=== PATIENT | male | born 1965 | race Native Hawaiian/Other Pacific Islander ===

== ENCOUNTER 2018-06-29 15:28 | Inpatient (IN) ==
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
[2018-06-29 17:00] LABS: Baso % (Auto) 0.5 % (0.0-2.0); Eos # (Auto) 0.2 th/mm3 (0.0-0.4); Eos % (Auto) 2.3 % (0.0-4.0); Hemoglobin 14.5 gm/dL (13.0-17.0); Lymph # (Auto) 1.9 th/mm3 (1.0-4.8); Lymph % (Auto) 19.3 % (9.0-44.0); Mean Corpuscular Hemoglobin 27.9 pg (27.0-34.0); Mean Corpuscular Volume 84.3 fL (80.0-100.0); Mean Platelet Volume 7.5 fL (7.0-11.0); Mono # (Auto) 0.6 th/mm3 (0.0-0.9); Mono % (Auto) 5.6 % (0.0-8.0); Neut # (Auto) 7.2 th/mm3 (1.8-7.7); Neut % (Auto) 72.3 % (16.0-70.0); Platelet Count 351 th/mm3 (150-450); Red Blood Count 5.22 mil/mm3 (4.50-5.90); Red Cell Distribution Width 13.1 % (11.6-17.2); White Blood Count 9.9 th/mm3 (4.0-11.0)
[2018-06-29 17:08] LABS: Chloride 101 meq/L (98-107); Potassium 4.2 meq/L (3.5-5.1); Sodium 136 meq/L (136-145)
[2018-06-29 17:12] LABS: Albumin 3.6 g/dL (3.4-5.0); Anion Gap 6 meq/L (5-15); Blood Urea Nitrogen 16 mg/dL (7-18); Carbon Dioxide 29.4 meq/L (21.0-32.0); Glucose,Random 121 mg/dL (74-106); Lipase 93 U/L (73-393); Magnesium 2.7 mg/dL (1.5-2.5)
[2018-06-29 17:15] LABS: Alanine Aminotransferase 22 U/L (12-78); Aspartate Aminotransferase 15 U/L (15-37); Glomerular Filtration Rate 78 mL/min (>89)
[2018-06-29 17:17] LABS: Total Protein 8.4 g/dL (6.4-8.2)
[2018-06-29 17:18] LABS: Alkaline Phosphatase 66 U/L (45-117)
--- NOTE | 2018-06-29 18:03 | CT ---
EXAM DATE: 06/29/2018 5:41 PM EST AGE/SEX: 53 years / Male INDICATIONS: Diffuse abdominal pain and constipation. CLINICAL DATA: This is the patient's initial encounter. Patient reports that signs and symptoms have been present for 3 days and indicates a pain score of 6/10. MEDICAL/SURGICAL HISTORY: . Umbilical hernia. Umbilical hernia repair. ORAL CONTRAST: No oral contrast ingested. RADIATION DOSE: 19.14 CTDI (mGy) COMPARISON: No prior exams available for comparison. TECHNIQUE: Multiple contiguous axial images were obtained through the abdomen and pelvis following b olus infusion of 97 ml Omnipaque 350 (iohexol) nonionic water-soluble contrast as a single exam dos e. No oral contrast ingested. Using automated exposure control and adjustment of the mA and/or kV ac cording to patient size, radiation dose was kept as low as reasonably achievable to obtain optimal di agnostic quality images. DICOM format image data is available electronically for review and comparis on. FINDINGS: Lower Lungs: There is mild increased density at the posterior lower lungs bilaterally likely related to atelectasis being worse on the right. Liver: The liver demonstrates diffuse decreased attenuation. No focal hepatic lesion is seen. The gal lbladder is unremarkable. Spleen: Homogeneous density without enlargement. Pancreas: Unremarkable without mass or calcification. Kidneys: Normal in size and shape. No evidence of hydronephrosis. Small cysts are seen at the superi or aspect of the kidneys bilaterally. Adrenal Glands: Unremarkable. Aorta: The aorta and proximal iliac vessels are grossly unremarkable without aneurysmal dilation. Bowel/Mesentery: There is dilated small bowel in mid abdomen. There is a hernia in the midline conta ining distal small bowel. The bowel within the hernia is not clearly dilated but given the small karrie l dilatation some degree of obstruction can be suspected. The patient also appears to have an area of acute angulation in the mid small bowel raising the possibility of separate adhesions. There appears to be is very prominently distended segment of small bowel in the left upper quadrant measuring 8.5 cm in diameter. There appears to be a bowel anastomosis suture at this level presumably from prior st udy small bowel anastomosis. Abdominal Wall: Again noted is the anterior abdominal wall hernia in the midline in the upper pelvic region. There does appear to be induration within the subcutaneous fat around this. A focal fluid co llection to suggest abscess is not seen. The colon is not distended. Retroperitoneum: No evidence of adenopathy in the retrocrural, para-aortic, or deep pelvic regions. Bladder: Contours are smooth. Reproductive Organs: No abnormal masses or calcifications seen. Inguinal: The inguinal region is unremarkable without evidence of adenopathy. Bony Structures: Unremarkable. CONCLUSION: 1. Dilatation of the small bowel likely from obstruction. The patient does have a hernia in the midl ine containing small bowel in the mid pelvic region and also as a potential area of adhesions with an acute angulation in the mid to distal small bowel. 2. Hepatic steatosis. 3. Small renal cysts. 4. Suspected atelectasis at the lung bases. Electronically signed by: Misael Chance MD 06/29/2018 6:01 PM EST
[2018-06-29 18:45] LABS: INR 1.1 Ratio; Prothrombin Time 10.8 sec (9.8-11.6)
[2018-06-29] MEDS ORDERED: HYDROmorphone PF Inj 0.5 MG/0.5 ML Syringe IV.PUSH PRN (18:57)
[2018-06-29] MEDS ORDERED: Potassium Chloride Inj 30 MEQ in Sod Chloride 0.9% Inj 1,000 ML IV.CONT SCH (19:00)
[2018-06-29] MEDS ORDERED: Acetaminophen 325 MG Tablet PO PRN (23:07)
[2018-06-29] MEDS: KCL 20 mEq/D5W/NaCl 0.45% Inj 1,000 ML IV.CONT SCH (23:16)
--- NOTE | 2018-06-29 23:44 | XR ---
EXAM DATE: 06/29/2018 11:32 PM EST AGE/SEX: 53 years / Male INDICATIONS: Cough. CLINICAL DATA: This is the patient's initial encounter. Patient reports that signs and symptoms have been present for 1 day and indicates a pain score of 0/10. MEDICAL/SURGICAL HISTORY: . Umbilical hernia. . Umbilical hernia repair. COMPARISON: No prior exams available for comparison. FINDINGS: There is blunting of the bilateral costophrenic angles without consolidation. This may be related to scarring or small effusions. Metallic pins overlie the neck and may be related to the patient's hair and this should be evaluated on physical exam. Osseous structures are intact. CONCLUSION: Blunting of bilateral costophrenic angles are noted. Electronically signed by: Parmjit Hernandez MD 06/29/2018 11:42 PM EST
--- NOTE | 2018-06-29 23:45 | XR ---
EXAM DATE: 06/29/2018 11:32 PM EST AGE/SEX: 53 years / Male INDICATIONS: Ileus. CLINICAL DATA: This is the patient's initial encounter. Patient reports that signs and symptoms have been present for 1 day and indicates a pain score of 0/10. MEDICAL/SURGICAL HISTORY: . Umbilical hernia. . Umbilical hernia repair. COMPARISON: CT abdomen and pelvis with contrast 06/29/2018. FINDINGS: There is moderate dilatation of air-filled small bowel loops in the central abdomen. Air is seen in nondilated large bowel and stomach. Recent CT showed a midline hernia defect containing small bowel l oops of dilated small intestine. CONCLUSION: Abnormal dilated loops of small bowel are again seen. Electronically signed by: Parmjit Hernandez MD 06/29/2018 11:44 PM EST
[2018-06-30 08:35] LABS: Baso # (Auto) 0.1 th/mm3 (0.0-0.2); Baso % (Auto) 0.9 % (0.0-2.0); Eos # (Auto) 0.5 th/mm3 (0.0-0.4); Eos % (Auto) 5.3 % (0.0-4.0); Hematocrit 40.6 % (39.0-51.0); Hemoglobin 13.9 gm/dL (13.0-17.0); Lymph # (Auto) 3.3 th/mm3 (1.0-4.8); Lymph % (Auto) 33.5 % (9.0-44.0); Mean Corpuscular HGB Conc 34.2 % (32.0-36.0); Mean Corpuscular Hemoglobin 29.2 pg (27.0-34.0); Mean Corpuscular Volume 85.3 fL (80.0-100.0); Mean Platelet Volume 7.6 fL (7.0-11.0); Mono # (Auto) 0.6 th/mm3 (0.0-0.9); Mono % (Auto) 6.4 % (0.0-8.0); Neut # (Auto) 5.2 th/mm3 (1.8-7.7); Neut % (Auto) 53.9 % (16.0-70.0); Platelet Count 317 th/mm3 (150-450); Red Blood Count 4.75 mil/mm3 (4.50-5.90); White Blood Count 9.7 th/mm3 (4.0-11.0)
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
[2018-06-30] MEDS: KCL 20 mEq/D5W/NaCl 0.45% Inj 1,000 ML IV.CONT SCH ×2 (09:00→20:25)
[2018-06-30 09:02] LABS: Calcium 7.8 mg/dL (8.5-10.1); Carbon Dioxide 25.4 meq/L (21.0-32.0); Potassium 4.1 meq/L (3.5-5.1)
[2018-06-30] MEDS ORDERED: Influenza (Quadrivalent) Vaccine 0.5 ML Syringe IM ONE (09:15)
[2018-06-30] MEDS: Senna/Docusate Sodium 8.6/50 MG Tablet PO SCH ×2 (09:26→20:26)
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
[2018-06-30] MEDS ORDERED: Diatrizoate Meglum/Diatrizoate Sod Liq 120 ML Bottle (for RAD diag) PO ONE (16:12)
--- NOTE | 2018-06-30 16:37 | ECG ---
Date Performed: 06/30/2018 Time Performed: 11:03:52 PTAGE: 53 years EKG: Sinus rhythm Since the previous tracing, no significant change noted NORMAL ECG PREVIOUS TRACING : 01/26/2016 09.54 DOCTOR: Matthew Manning Interpretating Date/Time 06/30/2018 16:35:55
--- NOTE | 2018-06-30 18:01 | FL ---
EXAM DATE: 06/30/2018 5:35 PM EST AGE/SEX: 53 years / Male INDICATIONS: Obstruction CLINICAL DATA: This is the patient's initial encounter. Patient reports that signs and symptoms have been present for 2 days and indicates a pain score of 5/10. MEDICAL/SURGICAL HISTORY: . Umbilical hernia. . Umbilical hernia repair. COMPARISON: [facility], ABDOMEN 1V KUB, 06/29/2018. [facility], CT ABDOMEN & PELVIS W CONTRAST, 06/29/2018. . FLUORO TIME: 0 IMAGE COUNT: 10 CONTRAST: [facility] FINDINGS: Photostatic Copy Maker view of the abdomen demonstrates persistent abnormally dilated proximal to mid small bowel. The re is colon gas present. Oral contrast was consumed and serial images were obtained to follow the con trast throughout the bowel. Jejunum is dilated with a normal fold pattern. There is a dilated segment of jejunum in the left upper quadrant in an area of prior surgery. Contrast progresses throughout th e examination and by 2 hours contrast has reached the colon at least to the mid descending colon. CONCLUSION: Persistent abnormally dilated jejunum. However, the oral contrast material reaches the colon by 2 viviana rs demonstrating that no high-grade obstruction is present. Electronically signed by: Misael Goodman MD 06/30/2018 5:59 PM EST
[2018-07-01] MEDS: KCL 20 mEq/D5W/NaCl 0.45% Inj 1,000 ML IV.CONT SCH (05:47)
[2018-07-01 07:25] LABS: Baso # (Auto) 0.1 th/mm3 (0.0-0.2); Baso % (Auto) 1.1 % (0.0-2.0); Eos # (Auto) 0.6 th/mm3 (0.0-0.4); Eos % (Auto) 5.6 % (0.0-4.0); Hematocrit 40.9 % (39.0-51.0); Lymph % (Auto) 29.5 % (9.0-44.0); Mean Corpuscular HGB Conc 34.3 % (32.0-36.0); Mean Corpuscular Hemoglobin 28.9 pg (27.0-34.0); Mean Corpuscular Volume 84.4 fL (80.0-100.0); Mean Platelet Volume 7.7 fL (7.0-11.0); Mono # (Auto) 0.5 th/mm3 (0.0-0.9); Mono % (Auto) 5.5 % (0.0-8.0); Neut # (Auto) 5.8 th/mm3 (1.8-7.7); Neut % (Auto) 58.3 % (16.0-70.0); Platelet Count 298 th/mm3 (150-450); Red Blood Count 4.85 mil/mm3 (4.50-5.90); Red Cell Distribution Width 13.8 % (11.6-17.2)
[2018-07-01 07:52] LABS: Carbon Dioxide 23.3 meq/L (21.0-32.0); Potassium 4.2 meq/L (3.5-5.1)
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
--- NOTE | 2018-07-01 09:58 | XR ---
EXAM DATE: 07/01/2018 9:53 AM EST AGE/SEX: 53 years / Male INDICATIONS: Distention. CLINICAL DATA: This is the patient's initial encounter. Patient reports that signs and symptoms have been present for 3 days and indicates a pain score of 0/10. MEDICAL/SURGICAL HISTORY: . Hernia . Hernia repair COMPARISON: [facility], SMALL BOWEL W GASTROGRAFIN, 06/30/2018. . FINDINGS: 2 AP supine views of the abdomen and pelvis were obtained and demonstrate residual oral contrast not ed throughout the colon. There are several loops of borderline dilated air-containing small bowel aga in noted in the left midabdomen. This is not significant change. There is no evidence of free air or mass effect on the supine study. The bony structures remain intact. CONCLUSION: 1. Several loops of borderline dilated air-containing small bowel remain in the left mid abdomen. 2. Residual contrast from the recent small bowel follow-through. Electronically signed by: Nathaniel Graham MD 07/01/2018 9:57 AM EST
[2018-07-01] MEDS: Senna/Docusate Sodium 8.6/50 MG Tablet PO SCH ×2 (10:02→20:41)
--- NOTE | 2018-07-01 11:18 | P.PNGS ---
Subjective Interval history: SBFT showed contrast in colon after 2 hrs. He had liquid bms. He is feeling better and wants some food. Physical Exam Vital signs: Vital Signs 06/30/18 12:00 06/30/18 16:00 06/30/18 20:00 Temperature 98.4 F 97.8 F 98.0 F Pulse Rate 77 77 77 Respiratory Rate 19 19 20 Blood Pressure 127/76 123/71 130/77 Pulse Oximetry 95 98 97 07/01/18 00:00 07/01/18 08:00 Temperature 98.8 F 98.1 F Pulse Rate 80 79 Respiratory Rate 20 17 Blood Pressure 129/81 121/69 Pulse Oximetry 97 97 Intake & Output 06/30/18 07/01/18 07/01/18 18:59 06:59 18:59 Intake Total 1100 / 1100 1999 / 1999 Balance 1100 / 1100 1999 Weight 86 kg Intake: IV 1000 / 1000 1999 / 1999 D5W/1/2NS + KCL 20 mEq Inj 1, 1000 / 1000 1999 / 1999 000 ML @ 100 mls/hr IV.CONT . Q10H [facility] Rx#:[id number] Oral 100 / 100 Other: # Voids 5 2 Date of Last Bowel Movement 06/26/18 06/29/18 # Bowel Movements 0 Narrative: Abd: soft, overall nontender except in lower midline to right mild tenderness Results - Labs 07/01/18 06:47 07/01/18 06:47 Laboratory Results - last 24 hr 07/01/18 07/01/18 06:47 06:47 WBC 10.0 RBC 4.85 Hgb 14.0 Hct 40.9 MCV 84.4 MCH 28.9 MCHC 34.3 RDW 13.8 Plt Count 298 MPV 7.7 Neut % (Auto) 58.3 Lymph % (Auto) 29.5 [place] % (Auto) 5.5 Eos % (Auto) 5.6 H Baso % (Auto) 1.1 Neut # (Auto) 5.8 Lymph # (Auto) 3.0 [place] # (Auto) 0.5 Eos # (Auto) 0.6 H Baso # (Auto) 0.1 WBC Differential . Differential Comment Auto diff final Sodium 138 Potassium 4.2 Chloride 108 H Carbon Dioxide 23.3 Anion Gap 7 BUN 12 Creatinine 0.99 Estimated GFR 79 L Random Glucose 96 Calcium 8.0 L - Imaging Imaging: ITS Impressions Chest X-Ray 06/29/18 00:00 CONCLUSION: Blunting of bilateral costophrenic angles are noted. Abdomen/Pelvis CT 06/29/18 16:37 CONCLUSION: 1. Dilatation of the small bowel likely from obstruction. The patient does have a hernia in the midline containing small bowel in the mid pelvic region and also as a potential area of adhesions with an acute angulation in the mid to distal small bowel. 2. Hepatic steatosis. 3. Small renal cysts. 4. Suspected atelectasis at the lung bases. Small Bowel X-Ray 06/30/18 00:00 CONCLUSION: Persistent abnormally dilated jejunum. However, the oral contrast material reaches the colon by 2 hours demonstrating that no high-grade obstruction is present. Abdomen X-Ray 07/01/18 07:00 CONCLUSION: 1. Several loops of borderline dilated air-containing small bowel remain in the left mid abdomen. 2. Residual contrast from the recent small bowel follow-through. Assessment and Plan - Assessment (1) SBO (small bowel obstruction) Code(s): K56.609 - Unspecified intestinal obstruction, unspecified as to partial versus complete obstruction Status: Acute (2) Abdominal wall hernia Code(s): K43.9 - Ventral hernia without obstruction or gangrene Status: Acute - Plan The patient appears to have a partial small bowel obstruction as well as a recurrent ventral incisional hernia SBO improving. Start fulls.
[2018-07-02] MEDS: Senna/Docusate Sodium 8.6/50 MG Tablet PO SCH (09:39)
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
--- NOTE | 2018-07-02 11:26 | P.PNGS ---
Subjective Interval history: He is tolerating fulls without problem. Physical Exam Vital signs: Vital Signs 07/01/18 12:31 07/01/18 16:00 07/01/18 20:00 Temperature 98.0 F 97.8 F 98 F Pulse Rate 84 87 77 Respiratory Rate 17 17 17 Blood Pressure 122/75 134/80 133/79 Pulse Oximetry 95 93 L 97 07/02/18 00:00 07/02/18 08:00 Temperature 98.8 F 97.8 F Pulse Rate 73 79 Respiratory Rate 18 16 Blood Pressure 125/74 115/74 Pulse Oximetry 96 96 Intake & Output 07/01/18 07/02/18 07/02/18 18:59 06:59 18:59 Intake Total 720 / 720 120 / 120 Output Total 600 / 600 Balance 720 / 720 -480 / -480 Weight 86 kg 82.3 kg Intake: Oral 720 / 720 120 / 120 Output: Urine 600 / 600 Other: # Voids 3 Date of Last Bowel Movement 07/01/18 07/01/18 # Bowel Movements 1 Weight On Admission 86 kg Narrative: Abd: soft, mildly distended Results - Labs 07/01/18 06:47 07/01/18 06:47 - Imaging Imaging: ITS Impressions Chest X-Ray 06/29/18 00:00 CONCLUSION: Blunting of bilateral costophrenic angles are noted. Abdomen/Pelvis CT 06/29/18 16:37 CONCLUSION: 1. Dilatation of the small bowel likely from obstruction. The patient does have a hernia in the midline containing small bowel in the mid pelvic region and also as a potential area of adhesions with an acute angulation in the mid to distal small bowel. 2. Hepatic steatosis. 3. Small renal cysts. 4. Suspected atelectasis at the lung bases. Small Bowel X-Ray 06/30/18 00:00 CONCLUSION: Persistent abnormally dilated jejunum. However, the oral contrast material reaches the colon by 2 hours demonstrating that no high-grade obstruction is present. Abdomen X-Ray 07/01/18 07:00 CONCLUSION: 1. Several loops of borderline dilated air-containing small bowel remain in the left mid abdomen. 2. Residual contrast from the recent small bowel follow-through. Assessment and Plan - Assessment (1) SBO (small bowel obstruction) Code(s): K56.609 - Unspecified intestinal obstruction, unspecified as to partial versus complete obstruction Status: Acute (2) Abdominal wall hernia Code(s): K43.9 - Ventral hernia without obstruction or gangrene Status: Acute - Plan The patient appears to have a partial small bowel obstruction as well as a recurrent ventral incisional hernia Continues to do well. Ok for soft diet and dc home if tolerating. D/w Soled[employer]
== END 2018-07-02 14:52 | disposition home or self-care (01) ==
LOC: PHED 15:28 → PHEDH 18:57 → N07 06-30 05:01
PROVIDERS: ADMIT Hospitalist; ATTEND Hospitalist
DX: K43.0 Incisional hernia with obstruction, without gangrene; Z23 Encounter for immunization